=== PATIENT | male | born 1955 | race Caucasian/White ===

== ENCOUNTER 2021-08-15 11:31 | Emergency (ER) | payer OTHER ==
[~2021-08-15] VITALS: Ht 167.6 cm; Wt 83.9 kg
[2021-08-15 14:08] LABS: Basophils # (auto) 0.1 10 ^3/uL (0-0.2); Basophils % (auto) 1.1 % (0.0-2.0); Eosinophils # (auto) 0.4 10 ^3/uL (0-0.8); Hematocrit 42.4 % (41.0-53.0); Hemoglobin 14.2 g/dL (13.5-17.5); Lymphocytes # (auto) 1.9 10 ^3/uL (0.4-5.4); Lymphocytes % (auto) 18.3 % (10.0-50.0); Mean Corpuscular Hemoglobin 27.2 pg (28.0-32.0); Mean Corpuscular Hgb Conc. 33.4 g/dL (32.0-36.0); Mean Corpuscular Volume 81.5 fL (80.0-100.0); Monocytes # (auto) 0.7 10 ^3/uL (0-1.3); Monocytes % (auto) 6.9 % (0.0-12.0); Neutrophils # (auto) 7.3 10 ^3/uL (1.6-8.6); Neutrophils % (auto) 69.7 % (37.0-80.0); Red Cell Distribution Width 17.5 % (11.8-14.3); White Blood Cell 10.5 10^3/uL (4.4-10.8)
[2021-08-15 14:43] LABS: Potassium 3.7 mmol/L (3.5-5.1)
[2021-08-15 14:44] LABS: Lactic Acid w/Reflex 4.1 mmol/L (0.4-2.0)
[2021-08-15 14:50] LABS: Albumin 2.7 g/dL (3.4-5.0); BUN/Creatinine Ratio 23.8; Bilirubin, Total 0.3 mg/dL (0.2-1.0); Calcium 9.3 mg/dL (8.5-10.1); Total Protein 7.7 g/dL (6.4-8.2)
[2021-08-15] MEDS ORDERED: SODIUM CHLORIDE 0.9% 1,000 ML IV SCH (15:45)
[2021-08-15] MEDS ORDERED: DEXTROSE (50%) 50ML SYRG IV PRN (15:45)
[2021-08-15] MEDS ORDERED: ACETAMINOPHEN 325 MG TAB PO PRN (15:45)
[2021-08-15] MEDS ORDERED: ONDANSETRON HCL 4 MG/2 ML VIAL IV PRN (15:45)
[2021-08-15] MEDS ORDERED: MORPHINE SULFATE INJECTION 2 MG/ML SYRG IV PRN (15:45)
[2021-08-15] MEDS ORDERED: DOCUSATE SOD 100 MG CAP PO PRN (15:45)
[2021-08-15] MEDS ORDERED: HYDROcodone-ACET 5/325MG TAB PO PRN (15:45)
[2021-08-15] MEDS ORDERED: SODIUM CHLORIDE 0.9% 1,000 ML IV ONE (16:15)
[2021-08-15] MEDS ORDERED: InsuLIN REG 1unit/0.01ml Soln (100units/ml) SC SCH ×2 (17:00→22:00)
[2021-08-15] MEDS ORDERED: ACCU-CHEK COMFORT CURVE STRIP VI SCH (17:00)
[2021-08-15 18:26] VITALS: BP 121/67
[2021-08-16] MEDS ORDERED: ENOXAPARIN SOD 40 MG/0.4 ML SYRINGE SC SCH (10:00)
== END 2021-08-15 18:30 | disposition short-term general hospital (02) ==
LOC: EDBD 11:31 → ER 11:31 → UNDOADMIN 15:40 → OVERFLOW 15:40 → UNDODISIN 18:30
DX: R53.1 Weakness (principal); E11.65 Type 2 diabetes mellitus with hyperglycemia; I10 Essential (primary) hypertension; Z20.822 Contact with and (suspected) exposure to COVID-19; Z89.511 Acquired absence of right leg below knee
CPT/HCPCS: 36415; 70450; 71045; 80053; 83605; 84484; 85025; 87040; 87426; 93005; 96360; 99285; J7030; G0378

== ENCOUNTER 2023-04-08 16:04 | Inpatient (IN) | payer OTHER ==
[~2023-04-08] VITALS: Ht 172.7 cm; Wt 85.0 kg
[2023-04-08] MEDS ORDERED: cefTRIAXone 1GM/50ML D5W 50 ML IV ONE (17:00)
[2023-04-08] MEDS ORDERED: SODIUM CHLORIDE 0.9% 1,000 ML IV ONE ×3 (17:00→21:45)
[2023-04-08] MEDS ORDERED: ACETAMINOPHEN 500 MG TAB PO ONE (17:15)
[2023-04-08 17:32] LABS: Basophils # (auto) 0 10 ^3/uL (0-0.2); Basophils % (auto) 0.2 % (0.0-2.0); Eosinophils # (auto) 0 10 ^3/uL (0-0.8); Eosinophils % (auto) 0.1 % (0.0-7.0); Hematocrit 36.7 % (41.0-53.0); Hemoglobin 11.8 g/dL (13.5-17.5); Lymphocytes # (auto) 0.3 10 ^3/uL (0.4-5.4); Lymphocytes % (auto) 3.4 % (10.0-50.0); Mean Corpuscular Hgb Conc. 32.3 g/dL (32.0-36.0); Mean Corpuscular Volume 86.7 fL (80.0-100.0); Monocytes # (auto) 0 10 ^3/uL (0-1.3); Monocytes % (auto) 0.3 % (0.0-12.0); Neutrophils # (auto) 7.4 10 ^3/uL (1.6-8.6); Nucleated Red Blood Cells % 0.1 %; Red Blood Cells 4.23 10^6/uL (4.5-5.90); Red Cell Distribution Width 16.6 % (11.8-14.3); White Blood Cell 7.7 10^3/uL (4.4-10.8)
[2023-04-08 17:44] LABS: Alanine Aminotransferase 14 U/L (7-40); Albumin 3.3 g/dL (3.2-4.8); Alkaline Phosphatase 94 U/L (46-116); Anion Gap 12 (5-15); Aspartate Aminotransferase 18 U/L (13-40); BUN/Creatinine Ratio 16.2 (10.0-20.0); Bilirubin, Total 0.3 mg/dL (0.2-1.0); Blood Urea Nitrogen 46 mg/dL (9-23); Calcium 8.3 mg/dL (8.7-10.4); Carbon Dioxide 15 mmol/L (20-30); Chloride 108 mmol/L (98-107); Glucose 167 mg/dL (74-106); Potassium 4.8 mmol/L (3.5-5.1); Sodium 135 mmol/L (136-145); Total Protein 6.4 g/dL (5.7-8.2)
[2023-04-08 18:25] LABS: Lactic Acid w/Reflex 5.3 mmol/L (0.4-2.0)
[2023-04-08] MEDS ORDERED: VANCOMYCIN 1GM/250ML 250 ML IV ONE (22:15)
[2023-04-08] MEDS ORDERED: NITROGLYCERIN 0.4 MG SL TAB SL PRN (23:30)
[2023-04-08] MEDS ORDERED: ACETAMINOPHEN 325 MG TAB PO PRN (23:30)
[2023-04-08] MEDS ORDERED: ONDANSETRON HCL 4 MG/2 ML VIAL IV PRN (23:30)
[2023-04-09] VITALS (19 sets, daily range): BP systolic 108–141; BP diastolic 41–71; PULSE 59–100; RESP 12–24; TEMP 98; O2SAT 98–100
[2023-04-09 02:05] LABS: Chloride 114 mmol/L (98-107); Potassium 4.7 mmol/L (3.5-5.1); Sodium 139 mmol/L (136-145)
[2023-04-09 02:06] LABS: Anion Gap 13 (5-15); Calcium 7.1 mg/dL (8.7-10.4); Carbon Dioxide 12 mmol/L (20-30)
[2023-04-09 02:11] LABS: BUN/Creatinine Ratio 13.5 (10.0-20.0); Blood Urea Nitrogen 38 mg/dL (9-23); Glucose 104 mg/dL (74-106)
[2023-04-09 03:53] LABS: Urine WBC None Seen /hpf (0 - 3)
[2023-04-09 04:04] LABS: Urine Bacteria NONE SEEN /hpf (None Seen); Urine Blood Negative /uL (Negative); Urine Clarity Clear (Clear); Urine Color Colorless (Yellow); Urine Protein, UAD Negative (Negative); Urine Specific Gravity 1.001 (1.001-1.035); Urine Urobilinogen Normal (Negative); Urine pH 6.5 (5.0-8.0)
[2023-04-09 06:31] LABS: Hematocrit 33.2 % (41.0-53.0); Hemoglobin 10.5 g/dL (13.5-17.5); Mean Corpuscular Hemoglobin 27.9 pg (28.0-32.0); Mean Corpuscular Hgb Conc. 31.7 g/dL (32.0-36.0); Mean Corpuscular Volume 88.1 fL (80.0-100.0); Red Blood Cells 3.77 10^6/uL (4.5-5.90); Red Cell Distribution Width 17.3 % (11.8-14.3); White Blood Cell 28.5 10^3/uL (4.4-10.8)
[2023-04-09 06:38] LABS: Albumin 2.9 g/dL (3.2-4.8); Alkaline Phosphatase 62 U/L (46-116); Anion Gap 11 (5-15); Aspartate Aminotransferase 39 U/L (13-40); BUN/Creatinine Ratio 11.7 (10.0-20.0); Bilirubin, Total < 0.2 mg/dL (0.2-1.0); Blood Urea Nitrogen 35 mg/dL (9-23); Calcium 7.6 mg/dL (8.5-10.1); Carbon Dioxide 13 mmol/L (20-30); Chloride 112 mmol/L (98-107); Glucose 137 mg/dL (74-106); Potassium 5.1 mmol/L (3.5-5.1); Sodium 136 mmol/L (136-145); Total Protein 5.5 g/dL (5.7-8.2)
[2023-04-09] MEDS ORDERED: ALBUMIN 5% 250 ML IV ONE (06:45)
[2023-04-09 06:57] LABS: Alanine Aminotransferase 18 U/L (7-40)
[2023-04-09 07:13] LABS: Basophils % (manual) 0 (0.0-2.0); Blast Cells 0; Eosinophils % (manual) 0 (0-7); Metamyelocytes % 0; Promyelocytes % 0; Reactive Lymphocytes 0
[2023-04-09] MEDS ORDERED: cefTRIAXone 1GM/50ML D5W 50 ML IV SCH ×2 (09:00→17:00)
[2023-04-09] MEDS: SODIUM BICARBONATE 50ML VIAL 150 ML in D5W 5% 1,000 ML IV SCH ×2 (09:45→21:15)
[2023-04-09] MEDS: GABAPENTIN 300 MG CAP PO SCH ×2 (10:00→21:35)
[2023-04-09] MEDS ORDERED: IPRATROPIUM BROM 0.5 MG/2.5ML INH SOL NEB ONE (11:30)
[2023-04-09] MEDS ORDERED: ALBUTEROL MEDNEB 2.5 mg/3ml NEB NEB ONE (11:30)
[2023-04-09 12:28] LABS: Band Neutrophils % (manual) 4; Lymphocytes % (manual) 1 (10.0-50.0); Monocytes % (manual) 4 (0-12); Myelocytes % 3; Platelet Estimate Adequate
[2023-04-09] MEDS ORDERED: MORPHINE SULFATE INJ 2 MG/ml SYRG IV PRN (15:30)
[2023-04-09] MEDS ORDERED: traMADol HCL 50 MG TAB PO PRN (15:30)
[2023-04-09] MEDS ORDERED: NOREPINEPHRINE 8 MG/250ML KIT 250 ML IV SCH (15:30)
[2023-04-09] MEDS ORDERED: PANTOPRAZOLE 40 MG/10 ML VIAL INJ IV ONE (15:30)
[2023-04-09] MEDS ORDERED: MEROPENEM 1GM IVPB 100 ML IV ONE (15:30)
[2023-04-09] MEDS ORDERED: DEXTROSE (50%) 50ML SYRG IV PRN (15:30)
[2023-04-09] MEDS: NOREPINEPHRINE 8 MG/250ML KIT 250 ML IV SCH (15:49)
[2023-04-09] MEDS: MORPHINE SULFATE INJ 2 MG/ml SYRG IV PRN (17:04)
[2023-04-09] MEDS: ACCU-CHEK COMFORT CURVE STRIP VI SCH ×2 (18:00→23:55)
[2023-04-09] MEDS: InsuLIN REG 1unit/0.01ml Soln (100units/ml) SC SCH ×2 (18:00→23:58)
[2023-04-09] MEDS: MEROPENEM 500MG IVPB 50 ML IV SCH (21:35)
[2023-04-09] MEDS ORDERED: ATORVASTATIN 20 MG TAB PO SCH (22:00)
[2023-04-09] MEDS ORDERED: MEROPENEM 1GM IVPB 100 ML IV SCH (22:00)
[2023-04-10] VITALS (105 sets, daily range): BP systolic 76–148; BP diastolic 39–81; PULSE 55–83; RESP 9–20; TEMP 97.4–98.6; O2SAT 76–100
[2023-04-10] MEDS: SODIUM BICARBONATE 50ML VIAL 150 ML in D5W 5% 1,000 ML IV SCH ×2 (03:49→15:37)
[2023-04-10 04:32] LABS: Alanine Aminotransferase 16 U/L (7-40); Alkaline Phosphatase 77 U/L (46-116); Anion Gap 11 (5-15); Aspartate Aminotransferase 45 U/L (13-40); BUN/Creatinine Ratio 16.4 (10.0-20.0); Carbon Dioxide 17 mmol/L (20-30); Chloride 105 mmol/L (98-107); Glucose 199 mg/dL (74-106); Mean Corpuscular Volume 88.9 fL (80.0-100.0); Potassium 5.1 mmol/L (3.5-5.1); Sodium 133 mmol/L (136-145)
[2023-04-10 04:33] LABS: Bilirubin, Total < 0.2 mg/dL (0.2-1.0); Total Protein 5.8 g/dL (5.7-8.2)
[2023-04-10 04:34] LABS: Hematocrit 31.2 % (41.0-53.0); Mean Corpuscular Hemoglobin 28.4 pg (28.0-32.0); Mean Corpuscular Hgb Conc. 31.9 g/dL (32.0-36.0); Red Blood Cells 3.51 10^6/uL (4.5-5.90); Red Cell Distribution Width 18.1 % (11.8-14.3)
[2023-04-10 04:43] LABS: Blood Urea Nitrogen 52 mg/dL (9-23)
[2023-04-10 04:52] LABS: Basophils % (manual) 0 (0.0-2.0); Blast Cells 0; Myelocytes % 0; Promyelocytes % 0; Reactive Lymphocytes 0
[2023-04-10 05:21] LABS: INR 1.37 (0.9-1.15); Prothrombin Time 14.1 sec (9.3-11.8)
[2023-04-10] MEDS: ACCU-CHEK COMFORT CURVE STRIP VI SCH ×3 (05:43→18:10)
[2023-04-10] MEDS: InsuLIN REG 1unit/0.01ml Soln (100units/ml) SC SCH ×3 (05:47→18:00)
[2023-04-10 05:59] LABS: Band Neutrophils % (manual) 23; Eosinophils % (manual) 1 (0-7); Lymphocytes % (manual) 5 (10.0-50.0); Metamyelocytes % 4; Monocytes % (manual) 2 (0-12); Platelet Estimate Adequate
[2023-04-10 06:00] LABS: Anisocytosis Slight
[2023-04-10] MEDS ORDERED: FUROSEMIDE 40 MG/4 ML VIAL IV ONE (11:00)
[2023-04-10] MEDS: PANTOPRAZOLE 40 MG/10 ML VIAL INJ IV SCH (11:14)
[2023-04-10] MEDS: GABAPENTIN 300 MG CAP PO SCH ×2 (11:14→22:02)
[2023-04-10] MEDS: MEROPENEM 500MG IVPB 50 ML IV SCH ×2 (11:17→22:02)
[2023-04-10] MEDS: NOREPINEPHRINE 8 MG/250ML KIT 250 ML IV SCH (15:30)
[2023-04-10] MEDS: TAMSULOSIN HYDROCHLORIDE 0.4 MG CAP PO SCH (18:10)
[2023-04-10] MEDS: IPRATROPIUM BROM 0.5 MG/2.5ML INH SOL NEB SCH ×2 (18:37→22:23)
[2023-04-10] MEDS: ALBUTEROL SULF 2.5 MG/0.5ML(0.5%) NEB SOLN NEB SCH ×2 (18:38→22:23)
[2023-04-10] MEDS: MUPIROCIN 2% OINT 15gm or 22gm FOR MRSA NARES EACHNOSTRI SCH (22:01)
[2023-04-11] VITALS (80 sets, daily range): BP systolic 73–190; BP diastolic 44–148; PULSE 73–159; RESP 9–22; TEMP 97.8–103.3; O2SAT 90–100
[2023-04-11] MEDS: ACCU-CHEK COMFORT CURVE STRIP VI SCH ×5 (00:03→23:44)
[2023-04-11] MEDS: InsuLIN REG 1unit/0.01ml Soln (100units/ml) SC SCH ×5 (00:07→23:44)
[2023-04-11 04:10] LABS: Basophils # (auto) 0.1 10 ^3/uL (0-0.2); Basophils % (auto) 0.3 % (0.0-2.0); Eosinophils # (auto) 0.2 10 ^3/uL (0-0.8); Eosinophils % (auto) 1.3 % (0.0-7.0); Hematocrit 30.3 % (41.0-53.0); Lymphocytes # (auto) 1.1 10 ^3/uL (0.4-5.4); Lymphocytes % (auto) 5.8 % (10.0-50.0); Mean Corpuscular Hemoglobin 28.2 pg (28.0-32.0); Mean Corpuscular Hgb Conc. 33.1 g/dL (32.0-36.0); Mean Corpuscular Volume 85.4 fL (80.0-100.0); Monocytes # (auto) 0.9 10 ^3/uL (0-1.3); Monocytes % (auto) 4.9 % (0.0-12.0); Neutrophils # (auto) 16.7 10 ^3/uL (1.6-8.6); Neutrophils % (auto) 87.7 % (37.0-80.0); Nucleated Red Blood Cells % 0.1 %; Red Blood Cells 3.55 10^6/uL (4.5-5.90); Red Cell Distribution Width 17.5 % (11.8-14.3); White Blood Cell 19.1 10^3/uL (4.4-10.8)
[2023-04-11 04:21] LABS: Alanine Aminotransferase 15 U/L (7-40); Albumin 2.8 g/dL (3.2-4.8); Alkaline Phosphatase 79 U/L (46-116); Calcium 6.8 mg/dL (8.7-10.4); Carbon Dioxide 21 mmol/L (20-30); Chloride 102 mmol/L (98-107); Glucose 149 mg/dL (74-106); Potassium 4.2 mmol/L (3.5-5.1); Sodium 132 mmol/L (136-145)
[2023-04-11 04:22] LABS: Anion Gap 9 (5-15); Aspartate Aminotransferase 27 U/L (13-40); BUN/Creatinine Ratio 13.4 (10.0-20.0); Bilirubin, Total < 0.2 mg/dL (0.2-1.0); Blood Urea Nitrogen 53 mg/dL (9-23); Total Protein 5.4 g/dL (5.7-8.2)
[2023-04-11] MEDS: ALBUTEROL SULF 2.5 MG/0.5ML(0.5%) NEB SOLN NEB SCH ×5 (07:07→22:19)
[2023-04-11] MEDS: IPRATROPIUM BROM 0.5 MG/2.5ML INH SOL NEB SCH ×5 (07:07→22:19)
[2023-04-11] MEDS: GABAPENTIN 300 MG CAP PO SCH ×2 (09:36→22:00)
[2023-04-11] MEDS: SODIUM BICARBONATE 50ML VIAL 150 ML in D5W 5% 1,000 ML IV SCH (09:36)
[2023-04-11] MEDS: MEROPENEM 500MG IVPB 50 ML IV SCH ×2 (09:36→22:20)
[2023-04-11] MEDS: MUPIROCIN 2% OINT 15gm or 22gm FOR MRSA NARES EACHNOSTRI SCH ×2 (09:36→22:21)
[2023-04-11] MEDS: PANTOPRAZOLE 40 MG/10 ML VIAL INJ IV SCH (09:36)
[2023-04-11] MEDS ORDERED: BUMETANIDE 2.5mg/10ml (0.25 mg/ml) INJ IV ONE (12:00)
[2023-04-11 13:29] LABS: Protein, Urine 110.8 mg/dL (0.0-11.9)
[2023-04-11 13:30] LABS: Creatinine, Urine 115.9 mg/dL (30.0-125.0); Urine Protein/Creatinine Ratio 0.96
[2023-04-11 13:32] LABS: Creatinine, Urine 115.04 mg/dL (30.0-125.0)
[2023-04-11 15:26] LABS: Base Excess -1.3 mmol/L (-2.0-2.0)
[2023-04-11] MEDS: NOREPINEPHRINE 8 MG/250ML KIT 250 ML IV SCH ×2 (15:30→23:42)
[2023-04-11] MEDS ORDERED: MIDAZOLAM HCL 2MG/2ML 2ml VIAL (1mg/ml) ONE (17:25)
[2023-04-11] MEDS ORDERED: LIDOCAINE 2%HCL (LOCAL ANESTH.) INJ 20ML MDV ONE (17:25)
[2023-04-11] MEDS ORDERED: fentaNYL CITRATE 100 MCG/2 ML VL ONE (17:25)
[2023-04-11] MEDS ORDERED: IODIXANOL 320MG/ML 100ML BTL IV ONE (17:30)
[2023-04-11] MEDS: TAMSULOSIN HYDROCHLORIDE 0.4 MG CAP PO SCH (18:00)
[2023-04-11] MEDS ORDERED: ACETAMINOPHEN 650 MG RECT SUPP PR PRN (19:30)
[2023-04-11 19:53] LABS: Base Excess -4.3 mmol/L (-2.0-2.0)
[2023-04-11] MEDS ORDERED: METOPROLOL TARTRATE 1MG/1ML-5ML VIAL IV ONE ×2 (22:58→23:00)
[2023-04-11 23:56] LABS: Magnesium 1.5 mg/dL (1.6-2.6)
[2023-04-11 23:58] LABS: Phosphorus 3.6 mg/dL (2.4-5.1)
[2023-04-12] VITALS (89 sets, daily range): BP systolic 90–134; BP diastolic 42–77; PULSE 66–147; RESP 7–22; TEMP 96.8–99.3; O2SAT 94–100
[2023-04-12] MEDS: IPRATROPIUM BROM 0.5 MG/2.5ML INH SOL NEB SCH ×6 (01:54→22:12)
[2023-04-12] MEDS: LEVALBUTEROL HCL 1.25 MG/3 ML NEB NEB SCH ×6 (01:54→22:12)
[2023-04-12] MEDS ORDERED: MAGNESIUM SULFATE 1GM/100ML 100 ML IV ONE (02:00)
[2023-04-12] MEDS: MORPHINE SULFATE INJ 2 MG/ml SYRG IV PRN (02:10)
[2023-04-12] MEDS ORDERED: AMIODARONE 450mg/250ml AE 250 ML IV SCH ×2 (02:20→09:45)
[2023-04-12] MEDS ORDERED: AMIODARONE 450mg/250ml AE 250 ML IV ONE (02:40)
[2023-04-12 04:23] LABS: Basophils # (auto) 0.1 10 ^3/uL (0-0.2); Basophils % (auto) 0.3 % (0.0-2.0); Eosinophils # (auto) 0.1 10 ^3/uL (0-0.8); Eosinophils % (auto) 0.5 % (0.0-7.0); Hematocrit 28.8 % (41.0-53.0); Hemoglobin 9.4 g/dL (13.5-17.5); Lymphocytes # (auto) 0.3 10 ^3/uL (0.4-5.4); Lymphocytes % (auto) 1.5 % (10.0-50.0); Mean Corpuscular Hemoglobin 28.1 pg (28.0-32.0); Mean Corpuscular Hgb Conc. 32.7 g/dL (32.0-36.0); Monocytes # (auto) 0.9 10 ^3/uL (0-1.3); Monocytes % (auto) 4.4 % (0.0-12.0); Neutrophils # (auto) 18.8 10 ^3/uL (1.6-8.6); Neutrophils % (auto) 93.3 % (37.0-80.0); Red Blood Cells 3.35 10^6/uL (4.5-5.90); Red Cell Distribution Width 17.1 % (11.8-14.3); White Blood Cell 20.1 10^3/uL (4.4-10.8)
[2023-04-12 04:45] LABS: Alanine Aminotransferase 19 U/L (7-40); Albumin 2.7 g/dL (3.2-4.8); Alkaline Phosphatase 118 U/L (46-116); Aspartate Aminotransferase 44 U/L (13-40); BUN/Creatinine Ratio 14.6 (10.0-20.0); Bilirubin, Total 0.3 mg/dL (0.2-1.0); Blood Urea Nitrogen 55 mg/dL (9-23); Calcium 7.3 mg/dL (8.5-10.1); Chloride 98 mmol/L (98-107); Glucose 210 mg/dL (74-106); Potassium 4.2 mmol/L (3.5-5.1); Sodium 132 mmol/L (136-145); Total Protein 5.2 g/dL (5.7-8.2)
[2023-04-12 04:56] LABS: Anion Gap 13 (5-15); Carbon Dioxide 21 mmol/L (20-30)
[2023-04-12] MEDS: ACCU-CHEK COMFORT CURVE STRIP VI SCH ×4 (06:29→23:42)
[2023-04-12] MEDS: InsuLIN REG 1unit/0.01ml Soln (100units/ml) SC SCH ×4 (06:30→23:43)
[2023-04-12] MEDS: BUDESONIDE (INHALATION) 0.5 MG/2 ML NEB NEB SCH ×2 (06:32→22:12)
[2023-04-12] MEDS: MUPIROCIN 2% OINT 15gm or 22gm FOR MRSA NARES EACHNOSTRI SCH ×2 (09:39→21:35)
[2023-04-12] MEDS: METOPROLOL TARTRATE 1MG/1ML-5ML VIAL IV SCH ×2 (09:39→21:36)
[2023-04-12] MEDS: PANTOPRAZOLE 40 MG/10 ML VIAL INJ IV SCH (09:40)
[2023-04-12] MEDS: GABAPENTIN 300 MG CAP PO SCH ×2 (09:40→21:35)
[2023-04-12] MEDS: MEROPENEM 500MG IVPB 50 ML IV SCH ×2 (09:49→21:35)
[2023-04-12] MEDS ORDERED: DOPamine 1600MCG/ML D5W 250 ML IV SCH (10:45)
[2023-04-12] MEDS: MAGNESIUM SULFATE 1GM/100ML 100 ML IV SCH ×2 (11:38→13:26)
[2023-04-12] MEDS: SODIUM BICARBONATE 50ML VIAL 50 ML in SOD CHL 0.45% 1,000 ML IV SCH (13:17)
[2023-04-12] MEDS ORDERED: AMIODARONE HCL 200 MG TAB PO ONE (15:15)
[2023-04-12] MEDS: TAMSULOSIN HYDROCHLORIDE 0.4 MG CAP PO SCH (18:00)
[2023-04-12] MEDS: AMIODARONE HCL 200 MG TAB PO SCH (21:35)
[2023-04-13] VITALS (60 sets, daily range): BP systolic 98–126; BP diastolic 51–68; PULSE 65–98; RESP 11–22; TEMP 98.5–99.7; O2SAT 76–100
[2023-04-13] MEDS: IPRATROPIUM BROM 0.5 MG/2.5ML INH SOL NEB SCH ×6 (02:12→22:09)
[2023-04-13] MEDS: LEVALBUTEROL HCL 1.25 MG/3 ML NEB NEB SCH ×6 (02:12→22:09)
[2023-04-13] MEDS: SODIUM BICARBONATE 50ML VIAL 50 ML in SOD CHL 0.45% 1,000 ML IV SCH (03:25)
[2023-04-13 04:20] LABS: Basophils # (auto) 0 10 ^3/uL (0-0.2); Basophils % (auto) 0.4 % (0.0-2.0); Eosinophils # (auto) 0.3 10 ^3/uL (0-0.8); Eosinophils % (auto) 2.4 % (0.0-7.0); Hematocrit 28.1 % (41.0-53.0); Hemoglobin 9.4 g/dL (13.5-17.5); Lymphocytes # (auto) 0.9 10 ^3/uL (0.4-5.4); Lymphocytes % (auto) 8.4 % (10.0-50.0); Mean Corpuscular Hgb Conc. 33.4 g/dL (32.0-36.0); Mean Corpuscular Volume 83.9 fL (80.0-100.0); Monocytes % (auto) 9.4 % (0.0-12.0); Neutrophils # (auto) 8.8 10 ^3/uL (1.6-8.6); Neutrophils % (auto) 79.4 % (37.0-80.0); Red Blood Cells 3.35 10^6/uL (4.5-5.90); Red Cell Distribution Width 16.8 % (11.8-14.3)
[2023-04-13 04:44] LABS: Albumin 2.6 g/dL (3.2-4.8); Alkaline Phosphatase 80 U/L (46-116); Anion Gap 7 (5-15); Aspartate Aminotransferase 51 U/L (13-40); BUN/Creatinine Ratio 14.8 (10.0-20.0); Calcium 7.1 mg/dL (8.7-10.4); Carbon Dioxide 26 mmol/L (20-30); Chloride 98 mmol/L (98-107); Glucose 170 mg/dL (74-106); Magnesium 2.3 mg/dL (1.6-2.6); Potassium 3.7 mmol/L (3.5-5.1); Sodium 131 mmol/L (136-145)
[2023-04-13 04:45] LABS: Bilirubin, Total 0.3 mg/dL (0.2-1.0); Total Protein 5.3 g/dL (5.7-8.2)
[2023-04-13 04:59] LABS: Blood Urea Nitrogen 45 mg/dL (9-23)
[2023-04-13] MEDS: ACCU-CHEK COMFORT CURVE STRIP VI SCH ×3 (06:19→18:31)
[2023-04-13] MEDS: InsuLIN REG 1unit/0.01ml Soln (100units/ml) SC SCH ×3 (06:20→18:32)
[2023-04-13] MEDS: BUDESONIDE (INHALATION) 0.5 MG/2 ML NEB NEB SCH ×2 (06:20→22:09)
[2023-04-13] MEDS: METOPROLOL TARTRATE 1MG/1ML-5ML VIAL IV SCH (09:35)
[2023-04-13] MEDS: GABAPENTIN 300 MG CAP PO SCH ×2 (09:57→22:25)
[2023-04-13] MEDS: PANTOPRAZOLE 40 MG/10 ML VIAL INJ IV SCH (09:57)
[2023-04-13] MEDS: MEROPENEM 500MG IVPB 50 ML IV SCH (09:58)
[2023-04-13] MEDS: AMIODARONE HCL 200 MG TAB PO SCH ×2 (09:58→22:25)
[2023-04-13] MEDS: MUPIROCIN 2% OINT 15gm or 22gm FOR MRSA NARES EACHNOSTRI SCH ×2 (09:58→22:25)
[2023-04-13] MEDS: SODIUM CHLORIDE 0.9% 1,000 ML IV SCH ×2 (12:00→22:24)
[2023-04-13] MEDS: TAMSULOSIN HYDROCHLORIDE 0.4 MG CAP PO SCH (18:31)
[2023-04-13] MEDS ORDERED: ATORVASTATIN 20 MG TAB PO SCH (22:00)
[2023-04-13] MEDS ORDERED: MEROPENEM 1GM IVPB 100 ML IV SCH (22:00)
[2023-04-14] MEDS ORDERED: ASPirin 81 mg TAB PO SCH (10:00)
== END 2023-04-14 00:03 | disposition short-term general hospital (02) | DRG 871 ==
LOC: ER 16:04 → EDBD 16:04 → TELE 23:25 → ICU WEST 04-09 20:15 → TELE-EAST 04-13 17:42
PROVIDERS: ADMIT Nurse Practitioner; ATTEND Internal Medicine
PROC: 0T9330Z Drainage of Right Kidney Pelvis with Drainage Device, Percutaneous Approach (ICD-10-PCS; principal; 2023-04-12)
PROC: BT11YZZ Fluoroscopy of Right Kidney using Other Contrast (ICD-10-PCS; 2023-04-12)
PROC: BT41ZZZ Ultrasonography of Right Kidney (ICD-10-PCS; 2023-04-12)
DX: A41.50 Gram-negative sepsis, unspecified (principal); I50.23 Acute on chronic systolic (congestive) heart failure; R65.21 Severe sepsis with septic shock; N17.0 Acute kidney failure with tubular necrosis; E87.20 Acidosis, unspecified; I13.0 Hypertensive heart and chronic kidney disease with heart failure and stage 1 through stage 4 chronic kidney disease, or unspecified chronic kidney disease; I47.10 Supraventricular tachycardia, unspecified; Z16.12 Extended spectrum beta lactamase (ESBL) resistance; N13.6 Pyonephrosis; J44.1 Chronic obstructive pulmonary disease with (acute) exacerbation; E87.1 Hypo-osmolality and hyponatremia; E83.42 Hypomagnesemia; E11.22 Type 2 diabetes mellitus with diabetic chronic kidney disease; N18.9 Chronic kidney disease, unspecified; E11.42 Type 2 diabetes mellitus with diabetic polyneuropathy; B95.62 Methicillin resistant Staphylococcus aureus infection as the cause of diseases classified elsewhere; N35.819 Other urethral stricture, male, unspecified site; N40.0 Benign prostatic hyperplasia without lower urinary tract symptoms; E11.51 Type 2 diabetes mellitus with diabetic peripheral angiopathy without gangrene; E78.5 Hyperlipidemia, unspecified; Z93.6 Other artificial openings of urinary tract status; Z95.1 Presence of aortocoronary bypass graft; Z89.511 Acquired absence of right leg below knee; Z86.73 Personal history of transient ischemic attack (TIA), and cerebral infarction without residual deficits; Q54.9 Hypospadias, unspecified
CPT/HCPCS: 36415; 36600; 50432; 71045; 74176; 74425; 76700; 76942; 80048; 80053; 81001; 82570; 82805; 82962; 83036; 83605; 83735; 83880; 84100; 84132; 84156; 84300; 84443; 84484; 85007; 85025; 85027; 85610; 85730; 87040; 87077; 87081; 87086; 87088; 87186; 93005; 93306; 94640; 99291; C9113; G0378; J0696; J1815; J2185; J2250; J2405; Q9967

== ENCOUNTER 2024-06-11 13:03 | Emergency (ER) | payer OTHER ==
[~2024-06-11] VITALS: Ht 167.6 cm; Wt 77.0 kg
[2024-06-11 13:15] VITALS: TEMP 97.9
[2024-06-11 13:18] VITALS: BP 125/77; PULSE 68; RESP 16; O2SAT 95
--- NOTE | 2024-06-11 13:50 | ED.PDOC ---
History of Present Illness HPI Comments 69 year old male QUYEN presents to the ED with chief complaint of generalized weakness. Patient reports that he had went to his scheduled [facility] appointment with concerns of generalized weakness and back pain, however, he was found to have a low blood pressure during triage and 911 was called for him. Patient relays that they placed an IV in him for fluids. Patient denies any chest pain, SOB, dizziness, headache, fever, chills, cough, or N/V/D. Chief Complaint: General Weakness Time Seen by MD: 13:47 Primary Care Provider: UNKNOWN Reviewed Notes: Nurses Notes, Manager Hiv Notes, Medications, Allergies Allergies: Coded Allergies: Codeine (Verified Allergy, Unknown, 08/15/21) Information Source: Patient, Emergency Med Personnel Mode of Arrival: EMS Severity: Moderate Timing: Hours Duration: Since onset Prehospital treatment: IVF Past Medical History PAST MEDICAL HISTORY: CAD, CKF, CVA, DM, HTN, VA Surgical History: BKA, CABG Surgical History (Other): Left knee replacement Family History Family History: Reviewed,noncontributory to illness Social History Smoker: Non-Smoker Alcohol: Denies ETOH Use Drugs: Denies Drug Use Lives In: Home Constitutional: reports: fatigue; denies: chills, diaphoresis, fever, malaise, sweats, weakness, others EENTM: denies: blurred vision, double vision, ear bleeding, ear discharge, ear drainage, ear pain, ear ringing, eye pain, eye redness, hearing loss, mouth pain, mouth swelling, nasal discharge, nose bleeding, nose congestion, nose pain, photophobia, tearing, throat pain, throat swelling, voice changes, others Respiratory: denies: cough, hemoptysis, orthopnea, SOB at rest, shortness of breath, SOB with excertion, stridor, wheezing, others Cardiovascular: denies: chest pain, dizzy spells, diaphoresis, Dyspnea on exertion, edema, irregular heart beat, left arm pain, lightheadedness, palpitations, PND, syncope, others Gastrointestinal: denies: abdomen distended, abdominal pain, blood streaked bowels, constipated, diarrhea, dysphagia, difficulty swallowing, hematemesis, melena, nausea, poor appetite, poor fluid intake, rectal bleeding, rectal pain, vomiting, others Genitourinary: denies: burning, dysuria, flank pain, frequency, hematuria, incontinence, penile discharge, penile sore, pain, testicle pain, testicle swelling, urgency, others Neurological: denies: dizziness, fainting, headache, left sided numbness, left sided weakness, numbness, paresthesia, pre-existing deficit, right sided numbness, right sided weakness, seizure, speech problems, tingling, tremors, weakness, others Musculoskeletal: reports: back pain; denies: gout, joint pain, joint swelling, muscle pain, muscle stiffness, neck pain, others Integumetry: denies: bruises, change in color, change in hair/nails, dryness, laceration, lesions, lumps, rash, wounds, others Allergic/Immunocompromised: denies: Difficulty Healing, Frequent Infections, Hives, Itching, others Hematologic/Lymphatic: denies: anemia, blood clots, easy bleeding, easy bruising, swollen glands, others Endocrine: denies: excessive hunger, excessive sweating, excessive thirst, excessive urination, flushing, intolerance to cold, intolerance to heat, unexplained weight gain, unexplained weight loss, others Psychiatric: denies: anxiety, bipolar disorder, depression, hopeless, panic disorder, schizophrenia, sleepless, suicidal, others All Other Systems: Reviewed and Negative Physical Exam General Appearance: No Apparent Distress HEENT: Normal ENT Inspection, Pharynx Normal, TMs Normal Neck: Full Range of Motion, Non-Tender, Normal, Normal Inspection Respiratory: Chest Non-Tender, Lungs Clear, No Accessory Muscle Use, No Respiratory Distress, Normal Breath Sounds Cardiovascular: No Edema, No JVD, No Murmur, No Gallop, Normal Peripheral Pulses, Regular Rate/Rhythm Breast Exam: Deferred Gastrointestinal: No Organomegaly, Non Tender, No Pulsatile Mass, Normal Bowel Sounds, Soft Genitalia: Deferred Pelvic: Deferred Rectal: Deferred Extremities: No calf tenderness, Normal capillary refill, No pedal edema, Other (Right BKA) Musculoskeletal : Apperance: Normal Neurologic: Alert, 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 Was a procedure done?: No Differential Dx Considerations may include: Generalized weakness, dehydration, electrolyte imbalance X-Ray, Labs, Meds, VS Vital Signs Date Time Temp Pulse Resp B/P (MAP) Pulse Ox O2 Delivery O2 Flow Rate FiO2 06/11/24 13:18 97.9 68 16 125/77 (93) 95 06/11/24 13:07 68 Lab Test 06/11/24 13:58 Range/Units White Blood Count 9.9 4.4-10.8 10^3/uL Red Blood Count 3.79 L 4.5-5.90 10^6/uL Hemoglobin 10.8 L 13.5-17.5 g/dL Hematocrit 32.3 L 41.0-53.0 % Mean Corpuscular Volume 85.4 80.0-100.0 fL Mean Corpuscular Hemoglobin 28.6 28.0-32.0 pg Mean Corpuscular Hemoglobin Concent 33.5 32.0-36.0 g/dL Red Cell Distribution Width 15.2 H 11.8-14.3 % Platelet Count 277 140-450 10^3/uL Mean Platelet Volume 8.5 6.9-10.8 fL Neutrophils (%) (Auto) 71.7 37.0-80.0 % Lymphocytes (%) (Auto) 13.1 10.0-50.0 % Monocytes (%) (Auto) 6.9 0.0-12.0 % Eosinophils (%) (Auto) 6.4 0.0-7.0 % Basophils (%) (Auto) 1.9 0.0-2.0 % Neutrophils # (Auto) 7.1 1.6-8.6 10 ^3/uL Lymphocytes # (Auto) 1.3 0.4-5.4 10 ^3/uL Monocytes # (Auto) 0.7 0-1.3 10 ^3/uL Eosinophils # (Auto) 0.6 0-0.8 10 ^3/uL Basophils # (Auto) 0.2 0-0.2 10 ^3/uL Nucleated Red Blood Cells 0.0 % Sodium Level 138 136-145 mmol/L Potassium Level 4.0 3.5-5.1 mmol/L Chloride Level 101 98-107 mmol/L Carbon Dioxide Level 27 20-31 mmol/L Anion Gap 10 5-15 Blood Urea Nitrogen 61 H 9-23 mg/dL Creatinine 3.29 H 0.700-1.30 mg/dL Glomerular Filtration Rate Calc 20 >90 mL/min BUN/Creatinine Ratio 18.5 10.0-20.0 Serum Glucose 131 H 74-106 mg/dL Calcium Level 9.3 8.7-10.4 mg/dL Troponin I High Sensitivity 22 </=54 ng/L Chest XR indicates: No acute cardiopulmonary disease. The patient's CBC shows anemia with a hemoglobin of 10.8 hematocrit of 32.3 The chemistry panel shows a BUN of 61 and a creatinine of 3.29 The troponin level is negative The patient has been normotensive here in the emergency department's We did go ahead and call [facility]. We did confirm that the patient has had renal issues with a creatinine running around 3.4 The patient will be discharged The patient was given an authorization number of [id number] (Dr. Alexander) Images Reviewed?: Images reviewed and evaluated by me Time of 1ST Reevaluation: 15:41 Reevaluation 1ST: Unchanged Patient Education/Counseling: Diagnosis, Treatment Family Education/Counseling: No Family Present Additional Information - I reviewed the following notes from patient's past medical encounters: 05/09/22 for generalized weakness - The following tests were ordered, and results were reviewed by me: (Labs, X- Ray, EKG): - Additional information was gathered from interviewing the following independent Historian: (Family, Other Providers, EMT): EMS - I reviewed and agreed with the following test results read by other provider: (X-ray, CT, US): - I discussed treatments and results with medical personnel. Departure 1 Departure Time of Disposition: 15:41 Impression: Primary Impression: Generalized weakness Disposition: 01 HOME / SELF CARE / HOMELESS Condition: Fair Discharged With: Self Critical Care Note Critical Care Time?: No Stability Stability form required: No Heart Score Heart Score: Heart Score Response (Comments) Value History N/A 0 EKG N/A 0 Age N/A 0 Risk Factors N/A 0 Troponin N/A 0 Total 0 I personally scribed for ALESSANDRO WHITE MD ([email or web address]) on 06/11/24 at 13:50. Electronically submitted by Shahriar Lomeli ([email or web address]). I personally scribed for ALESSANDRO WHITE MD ([email or web address]) on 06/11/24 at 15:04. Electronically submitted by Shahriar Lomeli ([email or web address]). ALESSANDRO WHITE MD Jun 11, 2024 13:50
[2024-06-11] MEDS: SODIUM CHLORIDE 0.9% 500 ML IV ONE (14:00)
[2024-06-11 14:27] LABS: Basophils # (auto) 0.2 10 ^3/uL (0-0.2); Basophils % (auto) 1.9 % (0.0-2.0); Eosinophils # (auto) 0.6 10 ^3/uL (0-0.8); Eosinophils % (auto) 6.4 % (0.0-7.0); Hematocrit 32.3 % (41.0-53.0); Hemoglobin 10.8 g/dL (13.5-17.5); Lymphocytes # (auto) 1.3 10 ^3/uL (0.4-5.4); Lymphocytes % (auto) 13.1 % (10.0-50.0); Mean Corpuscular Hemoglobin 28.6 pg (28.0-32.0); Mean Corpuscular Hgb Conc. 33.5 g/dL (32.0-36.0); Mean Corpuscular Volume 85.4 fL (80.0-100.0); Monocytes # (auto) 0.7 10 ^3/uL (0-1.3); Monocytes % (auto) 6.9 % (0.0-12.0); Neutrophils # (auto) 7.1 10 ^3/uL (1.6-8.6); Neutrophils % (auto) 71.7 % (37.0-80.0); Platelet Count (auto) 277 10^3/uL (140-450); Red Blood Cells 3.79 10^6/uL (4.5-5.90); Red Cell Distribution Width 15.2 % (11.8-14.3); White Blood Cell 9.9 10^3/uL (4.4-10.8)
--- NOTE | 2024-06-11 14:27 | DVH ---
XY CHEST TWO VIEWS ROUTINE CLINICAL HISTORY: weakness COMPARISON: None TECHNIQUE: Frontal and lateral view of the chest was obtained FINDINGS: Lines and Tubes: None Lungs: No focal consolidation. Pleura: No effusion. No pneumothorax. Cardiomediastinal contours: Unremarkable Bones: Median sternotomy. IMPRESSION: No acute cardiopulmonary disease.
[2024-06-11 14:29] LABS: Anion Gap 10 (5-15); Carbon Dioxide 27 mmol/L (20-31); Chloride 101 mmol/L (98-107); Sodium 138 mmol/L (136-145)
[2024-06-11 14:30] LABS: Calcium 9.3 mg/dL (8.7-10.4)
[2024-06-11 14:35] LABS: BUN/Creatinine Ratio 18.5 (10.0-20.0)
[2024-06-11 14:38] LABS: Blood Urea Nitrogen 61 mg/dL (9-23); Glucose 131 mg/dL (74-106)
--- NOTE | 2024-06-11 14:51 | ECG ---
[facility] Test Date: 2024-06-11 Test Time: 13:07:14 Pat Name: ANANYA GARCIA Department: ER Room: Gender: M [employer] Life Dean: J : 1955 Requested By: ALESSANDRO WHITE Order Number: [id number] Reading MD: Wilmer Montanez Measurements Intervals [place] Rate: 68 P: 22 MD: 182 QRS: -10 QRSD: 118 T: 134 QT: 438 QTc: 466 Interpretive Statements Sinus rhythm Abnormal inferior Q waves Anterior infarct, old Electronically Signed On 06-12-2024 19:51:46 PST by Wilmer Montanez Please click the below link to view image of tracing.
== END 2024-06-11 16:03 | disposition home or self-care (01) ==
LOC: EDBD 13:03 → ER 13:07
DX: R53.1 Weakness (principal); E11.9 Type 2 diabetes mellitus without complications; I10 Essential (primary) hypertension; I25.2 Old myocardial infarction; Z86.73 Personal history of transient ischemic attack (TIA), and cerebral infarction without residual deficits; Z88.5 Allergy status to narcotic agent; Z95.1 Presence of aortocoronary bypass graft; Z96.652 Presence of left artificial knee joint
CPT/HCPCS: 36415; 71046; 80048; 84484; 85025; 93005